=== PATIENT | male | born 1945 | race Caucasian/White ===

== ENCOUNTER → 2017-01-23 | Outpatient (CLI) | payer OTHER ==
[~2017-01-23] MED LIST: HYDR25TA9 PO; IOHEXOL 350 MG/ML 100ML VIAL. IV ONE; LISI-334 PO; METO25TA9 PO
--- NOTE | 2017-01-24 09:35 | RAD ---
CTA of the abdomen and pelvis with contrast, 01/23/2017: History: Abdominal aortic aneurysm, iliac aneurysm, peripheral vascular disease Multidetector CT imaging was performed following an IV bolus injection of iodinated contrast material. Multiplanar reconstructions were produced including 3-D volume rendered reconstructions of the aorta and major arteries. Originally this study was planned to include a runoff of the lower legs. The abdominal and pelvic arteries are well visualized. Due to bolus timing issues the thigh arteries were not adequately delineated. We will therefore return the patient to the department for repeat examination of the legs. Comparison is made to an exam from 10/07/2013. There is dilatation of the distal descending thoracic aorta and upper abdominal aorta. The lumen is partially opacified. There is a crescentic area in the lumen which does not opacify compatible with a chronic thrombosed false lumen from an aortic dissection. Similar findings were present on the previous exam. The aorta is largest in the upper abdomen near the level of the diaphragmatic hiatus. It currently measures 5.5 x 5.8 cm on the axial scans at this level compared to measurements of 4.6 x 5.3 cm on the previous study. There are moderate scattered calcific plaques. The celiac, superior mesenteric and bilateral renal arterial origins are widely patent. A tiny patent inferior mesenteric artery is evident. There is a small aneurysm of the distal left common iliac artery measuring 2.8 cm in width on the coronal images. It measured 2.7 cm on the previous study. The iliac arteries are not stenotic. There is moderate calcific plaquing at the common femoral artery levels without evidence of significant stenosis. IMPRESSION: 1. 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 2. Enlarging upper abdominal aortic aneurysm currently measuring 5.8 cm. 3. 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 4. CTA evaluation of the runoff arteries in the lower extremities was inadequate at this time due to bolus timing issues. Imaging of the legs will be repeated and reported separately.
== END | disposition home or self-care (01) ==
LOC: CT 15:03
PROVIDERS: ATTEND Internal Medicine
DX: I71.4 Abdominal aortic aneurysm, without rupture (principal); I72.3 Aneurysm of iliac artery; I73.9 Peripheral vascular disease, unspecified; I71.01 Dissection of thoracic aorta
CPT/HCPCS: 75635; Q9967